=== PATIENT | male | born 1945 | race Caucasian/White ===

== ENCOUNTER 2017-03-15 15:50 | Inpatient (IN) | payer OTHER ==
[~2017-03-15] VITALS: Ht 162.6 cm; Wt 76.8 kg
[~2017-03-15 15:50] MED LIST: ASPIR 8181 M1 PO; CENTRUM SILVER1 EAC3 PO; FISH OIL 1,0001 EAC7 PO; LORAZEPAM PO; METOCLOPRAMIDE H5 MG PO
[2017-03-15 17:47] LABS: HEMATOCRIT 41.4 % (38.0-50.0); MCH 32.9 PG (29.0-34.0); MCV 93.9 FL (86-99); RED BLOOD COUNT 4.41 M/uL (4.00-5.50)
[2017-03-15 17:48] LABS: WHITE BLOOD COUNT 0.6 K/uL (4.1-10.2)
[2017-03-15 17:51] LABS: CHLORIDE 95 mEq/L (99-109); SODIUM 129 mEq/L (136-147)
[2017-03-15 17:53] LABS: GLUCOSE 54 mg/dL (70-99)
[2017-03-15 17:54] LABS: ANION GAP 15 MEQ/L (2-14)
[2017-03-15 17:55] LABS: TOTAL BILIRUBIN 1.8 mg/dL (0.0-1.0)
[2017-03-15 17:56] LABS: ALKALINE PHOSPHATASE 46 IU/L (3-129)
[2017-03-15 17:57] LABS: GFR ESTIMATE (CALCULATED) 53 mL/min/
[2017-03-15 17:58] LABS: UREA NITROGEN (BUN) 40 mg/dL (9-23)
[2017-03-15] MEDS ORDERED: SYNTHROID75 MCG PO (18:13)
[2017-03-15] MEDS ORDERED: ASCORBIC ACID500 M3 PO (18:13)
[2017-03-15] MEDS ORDERED: CALCIUM 500 +1 EACH PO (18:14)
[2017-03-15] MEDS ORDERED: MAGNESIUM CITR100 MG PO (18:14)
[2017-03-15] MEDS ORDERED: VITAMIN D31000 UNIT PO (18:14)
[2017-03-15] MEDS ORDERED: ZANTAC150 MG PO (18:14)
[2017-03-15] MEDS ORDERED: PREVIDENT 5000100 ML DT (18:14)
[2017-03-15] MEDS ORDERED: CYANOCOBALAM1000 MCG PO (18:14)
[2017-03-15] MEDS ORDERED: PRILOSEC OTC20 MG PO (18:14)
[2017-03-15 18:20] LABS: TROP-I INTERPRETATION NEGATIVE; TROPONIN-I 0.01 ng/mL (0.0-0.30)
[2017-03-15 19:18] LABS: BICARBONATE 23.1 mEq/L (22-26); CARBOXY HGB 1.4 % (0-5); METHEMOGLOBIN 0.5 % (0-1.5); PCO2 40 mm Hg (35-45); PO2 61 mm Hg (80-100); pH 7.37 (7.35-7.45)
[2017-03-15 19:19] LABS: COMMENTS - BLOOD GASES A+C+; CONTINUOUS POS AIRWAY PRESSURE 5 cm H2O; DEVICE VENT; FI02 100 %; MODE NIV; PRES. SUPPORT 10 CM/H2O; SITE RR; TIDAL VOLUME 988 ML; TOTAL RESP RATE 20 resp/min
[2017-03-15 20:28] LABS: ABS NEUTROPHIL COUNT 0.4; BAND NEUTROPHILS 48.4 % (0-8.0); EOSINOPHIL ABS CT 0; HEMATOLOGY COMMENT 1 DIFF ON BUFFY COAT; INSTRUMENT ABS NEUTROPHIL CT 0.5 K/uL; LYMPHOCYTES 4.7 % (15.0-45.0); MEAN PLAT.VOLUME 10.6 uM^3 (9.0-12.4); METAMYELOCYTES 15.6 %; PLATELET COUNT 100 K/uL (156-360); SEG.NEUTROPHILS 12.5 % (46.0-76.0)
[2017-03-15 21:11] VITALS: BP 139/79
[2017-03-15 21:15] VITALS: BP 139/79
[2017-03-15 22:00] VITALS: BP 131/74
[2017-03-15 22:41] LABS: ADD MIUA? YES; BILIRUBIN NEGATIVE; BLOOD LARGE; COLOR AMBER ((YELLOW)); GLUCOSE (STRIP) NEGATIVE; KETONES NEGATIVE; LEUKOCYTES NEGATIVE; NITRITE NEGATIVE; PROTEIN (STRIP) 100; SPECIFIC GRAVITY 1.018 (1.000-1.030); UROBILINOGEN 0.2 MG/DL (0.2-1.0)
[2017-03-15 22:41] LABS: METH RESISTANT S AUREUS PCR NEGATIVE (NEGATIVE)
[2017-03-15 22:43] LABS: PROBE CHECK PASS; SPECIMEN PROCESSING CONTROL PASS
[2017-03-15 23:00] VITALS: BP 114/71
[2017-03-15 23:01] LABS: BACTERIA 2+ /HPF; CASTS PRESENT /LPF; CRYSTALS PRESENT; EPITHELIAL CELLS 1+ /HPF; FINE GRANULAR CASTS 0-5 /LPF; MUCUS 1+ /LPF; RED BLOOD CELLS NONE SEEN /HPF (0-5); UCUL ADDED? YES; WHITE BLOOD CELLS 0-5 /HPF (0-5)
[2017-03-15 23:02] LABS: AMORPHOUS URATES CRYSTALS 2+
[2017-03-16] VITALS (23 sets, daily range): BP systolic 97–135; BP diastolic 58–81
[2017-03-16 06:04] LABS: ANION GAP 12 MEQ/L (2-14); CHLORIDE 96 MEQ/L (99-109); GFR ESTIMATE (CALCULATED) 49 mL/min/; GLUCOSE 42 mg/dL (70-99); SAMPLE HEMOLYSIS CHECK 0; SAMPLE ICTERIC CHECK 0; SAMPLE LIPEMIA CHECK 0; SODIUM 129 MEQ/L (136-147); UREA NITROGEN (BUN) 38 mg/dL (9-23)
[2017-03-16 06:07] LABS: POINT-OF-CARE METER ID UU14174217; POINT-OF-CARE USER ID LABHNS84
[2017-03-16 06:14] LABS: HEMATOCRIT 39.2 % (38.0-50.0); MCH 33.5 PG (29.0-34.0); MCHC 35.5 G/DL (30.0-36.0); MCV 94.5 FL (86-99); MEAN PLAT.VOLUME 10.3 uM^3 (9.0-12.4); PLATELET COUNT 85 K/uL (156-360); RBC DIS.WIDTH-CV 13.4 % (11.8-14.6); RBC DIS.WIDTH-SD 46.4 % (39-53); RED BLOOD COUNT 4.15 M/uL (4.00-5.50)
[2017-03-16 06:23] LABS: WHITE BLOOD COUNT 0.9 K/uL (4.1-10.2)
[2017-03-16 14:19] LABS: POINT-OF-CARE METER ID UU14174217
[2017-03-16 16:10] LABS: POINT-OF-CARE METER ID UU14162636
[2017-03-16 16:10] LABS: POINT-OF-CARE METER ID UU14174217; POINT-OF-CARE USER ID LABHNS84
[2017-03-16 18:20] LABS: POINT-OF-CARE METER ID UU14174217
[2017-03-16 20:22] LABS: POINT-OF-CARE METER ID UU14162636
[2017-03-17] VITALS (24 sets, daily range): BP systolic 86–134; BP diastolic 52–92
[2017-03-17 04:18] LABS: POINT-OF-CARE METER ID UU14208751
[2017-03-17 05:14] LABS: HEMATOCRIT 32.8 % (38.0-50.0); MCH 33.8 PG (29.0-34.0); MCHC 36.6 G/DL (30.0-36.0); MCV 92.4 FL (86-99); MEAN PLAT.VOLUME 10.7 uM^3 (9.0-12.4); PLATELET COUNT 89 K/uL (156-360); RBC DIS.WIDTH-CV 13.2 % (11.8-14.6); RBC DIS.WIDTH-SD 45.4 % (39-53); RED BLOOD COUNT 3.55 M/uL (4.00-5.50); WHITE BLOOD COUNT 4.9 K/uL (4.1-10.2)
[2017-03-17 05:43] LABS: ANION GAP 7 MEQ/L (2-14); CHLORIDE 96 MEQ/L (99-109); GFR ESTIMATE (CALCULATED) 42 mL/min/; GLUCOSE 80 mg/dL (70-99); MAGNESIUM 2.1 mg/dl (1.3-2.7); POTASSIUM 3.4 MEQ/L (3.7-5.4); SAMPLE HEMOLYSIS CHECK 0; SAMPLE ICTERIC CHECK 0; SAMPLE LIPEMIA CHECK 0; SODIUM 130 MEQ/L (136-147); UREA NITROGEN (BUN) 33 mg/dL (9-23)
[2017-03-17 05:44] LABS: ABS NEUTROPHIL COUNT 4.6; ANISOCYTOSIS 2+; BURR CELLS 3+; EOSINOPHIL ABS CT 0; INSTRUMENT ABS NEUTROPHIL CT 4.6 K/uL; LYMPHOCYTES 3.5 % (15.0-45.0); MACROCYTES 2+; PLAT.SUFFICIENCY DECREASED; POIKILOCYTOSIS 3+
[2017-03-17 10:16] LABS: BASE EXCESS 0.6 mEq/L (-3 to +3); BICARBONATE 24.5 mEq/L (22-26); CARBOXY HGB 0.5 % (0-5); METHEMOGLOBIN 0.9 % (0-1.5); PCO2 36 mm Hg (35-45); PO2 79 mm Hg (80-100); pH 7.44 (7.35-7.45)
[2017-03-17 10:17] LABS: COMMENTS - BLOOD GASES NAC+; CONTINUOUS POS AIRWAY PRESSURE 5 cm H2O; DEVICE NIV MASK VENT; FI02 100 %; MODE SPONT NIV; PRES. SUPPORT 10 CM/H2O; SITE RR; TOTAL RESP RATE 17 resp/min
[2017-03-17 15:35] LABS: ANION GAP 6 MEQ/L (2-14); CHLORIDE 98 MEQ/L (99-109); GFR ESTIMATE (CALCULATED) 45 mL/min/; POTASSIUM 3.8 MEQ/L (3.7-5.4); SAMPLE HEMOLYSIS CHECK 0; SAMPLE ICTERIC CHECK 0; SAMPLE LIPEMIA CHECK 0; SODIUM 129 MEQ/L (136-147); UREA NITROGEN (BUN) 33 mg/dL (9-23)
[2017-03-17 15:39] LABS: GLUCOSE 117 mg/dL (70-99)
[2017-03-18] VITALS (26 sets, daily range): BP systolic 58–159; BP diastolic 35–129
[2017-03-18 05:35] LABS: BASE EXCESS -0.8 mEq/L (-3 to +3); BICARBONATE 24.3 mEq/L (22-26); CARBOXY HGB 0.9 % (0-5); COMMENTS - BLOOD GASES C+A+; DEVICE 840 VENT; FI02 90 %; MODE NIPPV; PCO2 41 mm Hg (35-45); PO2 64 mm Hg (80-100); SITE RR; TOTAL RESP RATE 16 resp/min; pH 7.38 (7.35-7.45)
[2017-03-18 05:36] LABS: PEEP 7 CM/H20; PRES. SUPPORT 10 CM/H2O
[2017-03-18 06:02] LABS: ANION GAP 9 MEQ/L (2-14); CHLORIDE 99 MEQ/L (99-109); GFR ESTIMATE (CALCULATED) 42 mL/min/; GLUCOSE 113 mg/dL (70-99); MAGNESIUM 1.8 mg/dl (1.3-2.7); POTASSIUM 3.9 MEQ/L (3.7-5.4); SAMPLE HEMOLYSIS CHECK 1; SAMPLE ICTERIC CHECK 0; SAMPLE LIPEMIA CHECK 0; SODIUM 131 MEQ/L (136-147); UREA NITROGEN (BUN) 32 mg/dL (9-23)
[2017-03-18 06:37] LABS: HEMATOCRIT 34.8 % (38.0-50.0); MCH 33.8 PG (29.0-34.0); MCHC 36.5 G/DL (30.0-36.0); MCV 92.6 FL (86-99); MEAN PLAT.VOLUME 10.8 uM^3 (9.0-12.4); PLATELET COUNT 69 K/uL (156-360); RBC DIS.WIDTH-CV 13.6 % (11.8-14.6); RBC DIS.WIDTH-SD 46.7 % (39-53); RED BLOOD COUNT 3.76 M/uL (4.00-5.50)
[2017-03-18 06:47] LABS: ANISOCYTOSIS 3+; BURR CELLS 3+; EOSINOPHIL ABS CT 0; GIANT PLATELETS 1+; INSTRUMENT ABS NEUTROPHIL CT 9.6 K/uL; MACROCYTES 3+; PLAT.SUFFICIENCY DECREASED; POIKILOCYTOSIS 3+
[2017-03-18 07:02] LABS: BAND NEUTROPHILS 6.2 % (0-8.0); SEG.NEUTROPHILS 84.1 % (46.0-76.0)
[2017-03-18 10:43] LABS: BASE EXCESS -0.4 mEq/L (-3 to +3); BICARBONATE 25.9 mEq/L (22-26); CARBOXY HGB 1.1 % (0-5); METHEMOGLOBIN 1.3 % (0-1.5); PCO2 48 mm Hg (35-45); PO2 50 mm Hg (80-100); pH 7.34 (7.35-7.45)
[2017-03-18 10:44] LABS: COMMENTS - BLOOD GASES A+C+; CONTINUOUS POS AIRWAY PRESSURE 10 cm H2O; DEVICE VENT; FI02 100 %; MODE NIV; PRES. SUPPORT 12 CM/H2O; SITE RR; TOTAL RESP RATE 24 resp/min
[2017-03-18 14:07] LABS: BASE EXCESS -1.6 mEq/L (-3 to +3); BICARBONATE 25.2 mEq/L (22-26); CARBOXY HGB 0.6 % (0-5); METHEMOGLOBIN 1.3 % (0-1.5); PCO2 50 mm Hg (35-45); pH 7.31 (7.35-7.45)
[2017-03-18 14:08] LABS: COMMENTS - BLOOD GASES NAC+; PO2 120 mm Hg (80-100); SITE RR
[2017-03-18 14:09] LABS: DEVICE VENT; FI02 100 %; MECHANICAL RATE 28 resp/min; MODE AC; PEEP 14 CM/H20; TIDAL VOLUME 560 ML; TOTAL RESP RATE 28 resp/min
[2017-03-19] VITALS (27 sets, daily range): BP systolic 0–152; BP diastolic 0–79
[2017-03-19 06:47] LABS: ANION GAP 10 MEQ/L (2-14); CHLORIDE 100 MEQ/L (99-109); GFR ESTIMATE (CALCULATED) 31 mL/min/; POTASSIUM 3.9 MEQ/L (3.7-5.4); SAMPLE HEMOLYSIS CHECK 0; SAMPLE ICTERIC CHECK 0; SAMPLE LIPEMIA CHECK 0; SODIUM 135 MEQ/L (136-147); UREA NITROGEN (BUN) 41 mg/dL (9-23)
[2017-03-19 06:55] LABS: GLUCOSE 83 mg/dL (70-99)
[2017-03-19 08:17] LABS: BASE EXCESS -2.9 mEq/L (-3 to +3); CARBOXY HGB 0.6 % (0-5); METHEMOGLOBIN 1.3 % (0-1.5); PCO2 50 mm Hg (35-45)
[2017-03-19 08:18] LABS: COMMENTS - BLOOD GASES A+C+; DEVICE VENT; FI02 100 %; PO2 73 mm Hg (80-100); SITE RR; pH 7.29 (7.35-7.45)
[2017-03-19 08:19] LABS: MECHANICAL RATE 28 resp/min; MODE AC; PEEP 14 CM/H20; TIDAL VOLUME 560 ML; TOTAL RESP RATE 28 resp/min
[2017-03-19 10:38] LABS: HEMATOCRIT 34.5 % (38.0-50.0); MCH 33.5 PG (29.0-34.0); MCHC 35.1 G/DL (30.0-36.0); MCV 95.6 FL (86-99); MEAN PLAT.VOLUME 11.4 uM^3 (9.0-12.4); PLATELET COUNT 71 K/uL (156-360); RBC DIS.WIDTH-CV 14.2 % (11.8-14.6); RBC DIS.WIDTH-SD 49.9 % (39-53); RED BLOOD COUNT 3.61 M/uL (4.00-5.50); WHITE BLOOD COUNT 15.6 K/uL (4.1-10.2)
[2017-03-19 10:51] LABS: MAGNESIUM 1.8 mg/dl (1.3-2.7)
[2017-03-19 11:06] LABS: ABS NEUTROPHIL COUNT 14.9; BAND NEUTROPHILS 0.9 % (0-8.0); EOSINOPHIL ABS CT 0; INSTRUMENT ABS NEUTROPHIL CT 14.9 K/uL; METAMYELOCYTES 2.6 %; SEG.NEUTROPHILS 94.8 % (46.0-76.0)
[2017-03-19 13:27] LABS: BASE EXCESS -3.1 mEq/L (-3 to +3); CARBOXY HGB 0.4 % (0-5); COMMENTS - BLOOD GASES C+; METHEMOGLOBIN 1.3 % (0-1.5); PCO2 51 mm Hg (35-45); PO2 164 mm Hg (80-100)
[2017-03-19 13:28] LABS: DEVICE VENT; FI02 100 %; PEEP 14 CM/H20; SITE RR; TOTAL RESP RATE 15 resp/min
[2017-03-19 13:29] LABS: pH 7.28 (7.35-7.45)
[2017-03-19 16:08] LABS: INTER. NORMALIZED RATIO 1.1; PROTHROMBIN TIME 11.8 SEC (10.2-12.9)
[2017-03-19 16:11] LABS: PTT 31.7 SEC (25-37)
[2017-03-19 23:21] LABS: BASE EXCESS -4.7 mEq/L (-3 to +3); BICARBONATE 22.1 mEq/L (22-26); CARBOXY HGB 0.5 % (0-5); COMMENTS - BLOOD GASES C+A+; DEVICE VENTILATOR; FI02 80 %; INSPIRATION TIME 0.6 seconds; MECHANICAL RATE 24 resp/min; METHEMOGLOBIN 1.1 % (0-1.5); MODE AC VC+; PCO2 47 mm Hg (35-45); PEEP 14 CM/H20; PO2 77 mm Hg (80-100); TIDAL VOLUME 560 ML; TOTAL RESP RATE 27 resp/min
[2017-03-19 23:22] LABS: pH 7.28 (7.35-7.45)
[2017-03-20] VITALS: BP 107/63
[2017-03-20 00:01] LABS: INFLUENZA A VIRAL ANTIGEN NEGATIVE; INFLUENZA B VIRAL ANTIGEN NEGATIVE
[2017-03-20 02:00] VITALS: BP 113/60
[2017-03-20 03:22] LABS: BICARBONATE 22.2 mEq/L (22-26); CARBOXY HGB 0.9 % (0-5); METHEMOGLOBIN 1.3 % (0-1.5); PCO2 75 mm Hg (35-45); PO2 91 mm Hg (80-100)
[2017-03-20 03:23] LABS: COMMENTS - BLOOD GASES C+A+; DEVICE VENTILATOR; FI02 100 %; INSPIRATION TIME 0.6 seconds; MECHANICAL RATE 24 resp/min; MODE AC VC+; PEEP 14 CM/H20; TIDAL VOLUME 490 ML; TOTAL RESP RATE 24 resp/min; pH 7.08 (7.35-7.45)
[2017-03-20 04:00] VITALS: BP 100/59
[2017-03-20 05:05] LABS: BASE EXCESS -8.8 mEq/L (-3 to +3); BICARBONATE 21.6 mEq/L (22-26); CARBOXY HGB 0.9 % (0-5); COMMENTS - BLOOD GASES C+; DEVICE VENT; FI02 100 %; INSPIRATION TIME 0.6 seconds; MECHANICAL RATE 28 resp/min; METHEMOGLOBIN 1.2 % (0-1.5); MODE AC; PCO2 68 mm Hg (35-45); PO2 92 mm Hg (80-100); SITE A-LINE; TOTAL RESP RATE 28 resp/min
[2017-03-20 05:06] LABS: PEEP 14 CM/H20; TIDAL VOLUME 490 ML; pH 7.11 (7.35-7.45)
[2017-03-20 06:00] VITALS: BP 80/53
[2017-03-20 08:04] LABS: INTERNAL CONTROL VALID? YES
[2017-03-20 10:45] LABS: HIV INDEX 0.16; HIV-1/2 AB/AG COMBO Nonreactive
== END 2017-03-20 07:47 | DRG 871 ==
LOC: EME 15:50 → ENRESERV 19:43 → 4WEST 19:43 → EDOF 19:43 → ENRESERV 20:19 → 4WEST 21:12
PROVIDERS: Emergency Medicine; Internal Medicine; Internal Medicine Critical Care Medicine; Specialist
DX: A41.9 Sepsis, unspecified organism (principal); J18.9 Pneumonia, unspecified organism; J96.01 Acute respiratory failure with hypoxia; N17.0 Acute kidney failure with tubular necrosis; E87.2 Acidosis; I48.92 Unspecified atrial flutter; R57.0 Cardiogenic shock; R65.20 Severe sepsis without septic shock; Z51.5 Encounter for palliative care; Z66 Do not resuscitate; D70.1 Agranulocytosis secondary to cancer chemotherapy; T45.1X5A Adverse effect of antineoplastic and immunosuppressive drugs, initial encounter; E86.0 Dehydration; G47.33 Obstructive sleep apnea (adult) (pediatric); I10 Essential (primary) hypertension; C09.9 Malignant neoplasm of tonsil, unspecified; I48.91 Unspecified atrial fibrillation; E87.6 Hypokalemia; D69.6 Thrombocytopenia, unspecified; E87.8 Other disorders of electrolyte and fluid balance, not elsewhere classified; I27.2 Other secondary pulmonary hypertension; Z90.49 Acquired absence of other specified parts of digestive tract
CPT/HCPCS: 36600; 71010; 71250; 74176; 80048; 80048 91; 80053; 80202; 81003; 82803; 82948; 83605; 83735; 84100; 84484; 84550; 85009; 85025; 85027; 85610; 85730; 86703; 87040; 87070; 87077; 87086; 87186; 87205; 87449; 87502; 87641; 93005; 93306; 94002; 94003; 94760; 94799; 99281; 99284; C1751; J0171; J1644; J1940; J2060; J2250; J2543; J2704; J3010; J3370; J3475; J3480; J7030; J7040; J7050; J7120; S0028